=== PATIENT | female | born 1955 | race Caucasian/White ===

== ENCOUNTER 2019-05-17 12:27 | Outpatient (CLI) | payer MEDICARE, OTHER ==
--- NOTE | 2019-05-17 14:23 | ULT ---
THYROID ULTRASOUND: Date: 05/17/19 COMPARISON: None. HISTORY: Thyroid nodule. TECHNIQUE: Multiplanar Mendoza scale sonographic imaging of the thyroid gland obtained. FINDINGS: Thyroid isthmus measures 3 mm in AP dimension. Right lobe measures 1.6 x 5.2 x 1.8 cm. There is a 5.0 x 3.0 x 4.0 mm solid and cystic nodule within the inferior aspect of the right lobe. There is a solid hypoechoic nodule within the superior aspect of the right lobe measuring 5.0 x 3.0 x 4.0 mm. Right lobe measures 1.6 x 5.2 x 1.8 cm. Left lobe ekta sures 1.1 x 3.9 x 1.4 cm. No nodule noted in the thyroid isthmus or left lobe. IMPRESSION: TI-RADS Category 4 - Moderately suspicious. As the hypoechoic nodule within the right lobe is less th an 1.0 cm, no further follow-up is recommended based on TI-RADS recommendations. POS: C
== END 2019-05-17 12:28 | disposition home or self-care (01) ==
LOC: BICULT 12:27
PROVIDERS: ATTEND Internal Medicine Cardiovascular Disease
DX: E04.1 Nontoxic single thyroid nodule (principal)
CPT/HCPCS: 76536

== ENCOUNTER 2019-07-09 10:19 | Day surgery (SDC) | payer MEDICARE, OTHER ==
[2019-07-06 10:39] VITALS: BMI 35.4
[2019-07-09] MEDS ORDERED: Midazolam HCl 2 mg/2 ml Vial ONE ×2 (10:39→13:20)
[2019-07-09] MEDS ORDERED: Fentanyl 100 MCG/2 ML VIAL ONE ×2 (10:39→13:20)
[2019-07-09] MEDS ORDERED: Famotidine/PF 20 mg/2ml Vial ONE (11:20)
--- NOTE | 2019-07-09 12:22 | RAD ---
XR Hip Rt 2-3 View HISTORY: Right hip pain. No history of trauma. COMPARISON: None. FINDINGS: Some minimal osteophytic changes of the acetabulum are seen and femoral head neck junction. No joint space narrowing. No fractures. IMPRESSION: Minimal arthritic changes of the hip.
--- NOTE | 2019-07-09 12:23 | RAD ---
XR Hip Lt 2-3 View HISTORY: Left hip pain. No history of trauma. COMPARISON: None. FINDINGS: Some very mild arthritic changes of the hip are noted with some minimal spurring along the acetabulum and femoral head neck junction. Ossification is seen adjacent to the greater trochanter probably related to the gluteus minimus and medius tendons. IMPRESSION: Mild arthritic changes of the hip. No significant joint space narrowing.
--- NOTE | 2019-07-09 12:25 | RAD ---
XR Lumbar Spine 2 Or 3 View HISTORY: Back pain. COMPARISON: None. FINDINGS: The vertebral bodies are normal in height. There are degenerative osteophytes along the cou rse of the spine with mild disc narrowing at L2-3. No spondylolisthesis. No abnormal motion in flexion or extension. Moderate degenerative facet changes are seen. IMPRESSION: Arthritic changes of the spine. No abnormal motion seen on flexion or extension views.
--- NOTE | 2019-07-09 12:27 | RAD ---
XR Cervical Sp Com W/Obl Fl/Ex HISTORY: Neck pain. COMPARISON: None. FINDINGS: The vertebral bodies are normal in height degenerative osteophytic changes are seen at C4-5 without significant disc narrowing. Mild to moderate disc narrowing is seen at C5-6 and mild disc narrowing at C6-7. There are degenerative facet changes present. There is somewhat restricted motion of the lower cervical spine on the flexion view no evidence of any abnormal motion. IMPRESSION: Moderate arthritic changes of the lower cervical spine.
--- NOTE | 2019-07-09 14:00 | MRI ---
MRI BRAIN WITHOUT CONTRAST: 07/09/2019 12:00 a.m. CLINICAL HISTORY: Pain. COMPARISON: None. FINDINGS: Extra axial spaces: Normal in size and morphology for the patient's age. Acute infarction: None. Ventricular system: Normal in size and morphology for the patient's age. Basal cisterns: Normal. Cerebral parenchyma: There is a complex cystic focus of the left carpio radiata, anteriorly with surr ounding T2 hyperintensity. There is vague T2 hypoattenuation involving the anterior pole of the left temporal lobe. Multifocal signal abnormalities of the brain parenchyma are most consistent with mild chronic ischemic disease. Midline shift: None. Cerebellum: Normal. Brainstem: Mild gliosis. Paranasal sinuses:Scattered mucosal thickening. IMPRESSION: 1. Complex cystic focus of the anterior left carpio radiata with surrounding parenchymal T2 hyperinte nsity. Recommend contrast enhanced brain MRI in order to exclude an underlying cystic lesion. 2. Vague T2 hypointensity of the anterior pole left temporal lobe, nonspecific. Exclusion of enhancem ent may be evaluated on follow-up scan, as recommended above. 3. Microvascular ischemic disease of the cerebral white matter and brainstem. Transcribed Date/Time: 07/09/2019 2:29 PM
--- NOTE | 2019-07-09 14:20 | MRI ---
MRI Cervical spine without contrast: HISTORY: Neck Pain COMPARISON: None FINDINGS: The craniocervical junction is unremarkable. No significant cord signal abnormality. Paravertebral soft tissues have a normal appearance and normal signal intensity. C1-2:No significant stenosis. C2-3: There is a tiny central disc protrusion mildly effacing the ventral subarachnoid space. Neural foramina are patent. C3-4: There is a minimal disc osteophyte complex and tiny central disc protrusion. This mildly efface s the ventral subarachnoid space. Facet hypertrophic changes are present. Findings result in mild bilateral neural foraminal narrowing. C4-5: There is a broad-based disc osteophyte complex with uncinate process hypertrophy on the right. Findings narrow the ventral subarachnoid space and flatten the anterior aspect of the spinal cord. Left neural foramen is patent, but there is moderate right-sided neural foraminal narrowing. C5-6: There is loss of intervertebral disc height. There is broad-based disc osteophyte complex which results in flattening of the anterior aspect of the spinal cord and generalized narrowing of the central spinal canal. There is moderate right and moderate to severe left-sided neural foraminal narr owing. C6-7: There is a mild disc osteophyte complex. This narrows the ventral subarachnoid space with sligh t flattening of the anterior aspect of the spinal cord. Right neural foramen is patent, but there is mild to moderate left-sided neural foraminal narrowing. C7-T1: There is no disc bulge or disc herniation. The central spinal canal and neural foramina are pa tent. IMPRESSION: Degenerative changes in the cervical spine.
--- NOTE | 2019-07-09 14:37 | MRI ---
EXAM: Lumbar spine MRI without contrast. HISTORY: Low back pain COMPARISON: None FINDINGS: Multiplanar, multisequence MRI examination of the lumbar spine is performed. The conus medullaris region appears unremarkable. No evidence for significant abnormal marrow signal. Generalized disc desiccation changes and ligament and facet hypertrophic changes. T12-L1 disc level: Unremarkable. L1-L2 disc level: Unremarkable. L2-L3 disc level: Very slight thinning of the lateral recesses L3-L4 disc level: Mild central canal and [id number] bilateral recess stenosis L4-L5 disc level: Moderate lateral recess stenosis worse on the left side. L5-S1 disc level: Central and left central protrusion with mild central canal indention and left late ral recess stenosis. IMPRESSION: Multilevel variable severity canal, lateral recess, and foraminal stenosis.
[2019-07-09] MEDS ORDERED: ePHEDrine/0.9% NaCl/PF SYRINGE 50 mg/10 ml ONE (15:43)
[2019-07-09] MEDS ORDERED: Ondansetron PF 4 MG/2 ML Vial ONE (15:43)
[2019-07-09] MEDS ORDERED: Lidocaine 1% PF 5 ML VIAL ONE (15:43)
[2019-07-09] MEDS ORDERED: PROPOFOL 200 MG/20 ML VIAL ONE (15:43)
[2019-07-09] MEDS ORDERED: Glycopyrrolate 0.2 MG/ML 5 ML SYRINGE ONE (15:43)
[2019-07-09] MEDS ORDERED: PHENYLEPHRINE-NS 100 MCG/ML 10 ML SYRINGE ONE (15:43)
--- NOTE | 2019-07-09 16:30 | EKG ---
Test Reason : PREOP Blood Pressure : / mmHG Vent. Rate : 070 BPM Atrial Rate : 070 BPM P-R Int : 162 ms QRS Dur : 082 ms QT Int : 398 ms P-R-T Axes : 040 072 069 degrees QTc Int : 429 ms Normal sinus rhythm Normal ECG No previous ECGs available Confirmed by DR. Alexandru TIRADO ([id number]) on 07/09/2019 4:29:32 PM Referred By: FRANCI Confirmed By:DR. Alexandru TIRADO
== END 2019-07-09 15:45 | disposition home or self-care (01) ==
LOC: SDC/OP 10:19
PROVIDERS: ATTEND Neurological Surgery
DX: M48.061 Spinal stenosis, lumbar region without neurogenic claudication (principal); M51.27 Other intervertebral disc displacement, lumbosacral region; M48.07 Spinal stenosis, lumbosacral region; M50.21 Other cervical disc displacement, high cervical region; M25.78 Osteophyte, vertebrae; M16.12 Unilateral primary osteoarthritis, left hip; Z79.4 Long term (current) use of insulin; Z79.82 Long term (current) use of aspirin; Z79.899 Other long term (current) drug therapy; Z88.0 Allergy status to penicillin; Z88.1 Allergy status to other antibiotic agents; Z88.2 Allergy status to sulfonamides; Z88.5 Allergy status to narcotic agent; Z88.6 Allergy status to analgesic agent
CPT/HCPCS: 36416; 70551; 72052; 72100; 72141; 72148; 93005; 93010; J2001; J2250; J2405; J2704; J3010; S0028

== ENCOUNTER 2019-08-17 10:00 | Day surgery (SDC) | payer MEDICARE, OTHER ==
[2019-08-16 13:32] VITALS: BMI 34.3
[2019-08-17] MEDS ORDERED: Albuterol Sulfate HFA (OR ONLY) ONE (12:24)
[2019-08-17] MEDS ORDERED: Fentanyl 100 MCG/2 ML VIAL ONE (12:24)
[2019-08-17] MEDS ORDERED: Lidocaine 1% PF 5 ML VIAL ONE (12:49)
[2019-08-17] MEDS ORDERED: ePHEDrine/0.9% NaCl/PF SYRINGE 50 mg/10 ml ONE (12:49)
[2019-08-17] MEDS ORDERED: PROPOFOL 200 MG/20 ML VIAL ONE (12:49)
[2019-08-17] MEDS ORDERED: Ondansetron PF 4 MG/2 ML Vial ONE (12:49)
[2019-08-17 13:26] LABS: Estimated GFR-MDRD - POC Greater than 90
--- NOTE | 2019-08-17 14:06 | MRI ---
Exam: MRI thoracic spine without contrast HISTORY: Thoracic spine pain. COMPARISON: None TECHNIQUE: MRI thoracic spine is performed without contrast FINDINGS: Appropriate T1 marrow signal intensity of the thoracic vertebra. Vertebral body height is maintained. No fracture. No significant STIR hyperintensity to suggest vertebral body edema or ligamentous injury Intrinsic T1 and T2 hyperintensity involving the T11 vertebral body, compatible with a small vertebra l body hemangioma. Visualized mediastinum is unremarkable. Dependent atelectatic changes lung parenchyma Visualized solid organs are unremarkable Conus medullaris terminates beyond the T12 vertebral body. The thoracic cord has a normal size and si gnal intensity. No cord malacia. No cord expansion. Throughout the thoracic spine, no significant central canal stenosis or significant neural foraminal narrowing. IMPRESSION: No significant central canal stenosis or significant neural foraminal narrowing throughout the thorac ic spine.
--- NOTE | 2019-08-17 14:34 | MRI ---
Exam: Brain MRI with and without contrast HISTORY: Brain cyst COMPARISON: 07/09/2019 FINDINGS: Gradient echo sequence: No hemorrhage Calvarium: Appropriate T1 marrow signal intensity Midline brain parenchyma: Unremarkable Cerebrum:Redemonstration of a T2 and FLAIR hyperintense focus in the anterior left carpio radiata, me asuring 1.8 x 1.6 cm. Grossly, this lesion measured 1.7 x 1.5 cm. There are components of T2 and FLAIR hyperintensity. Additional areas of T2 hyperintensity and FLAIR hypointensity are noted. These small areas likely represent areas of cystic degeneration. No associated restricted diffusion. No evidence of hemorrhage. Postcontrast images do not demonstrate any evidence of enhancement. Ventricles: No evidence of hydrocephalus. Sinuses and mastoid air cells: Adequate aeration Diffusion: Central arterial flow is maintained. Absent restricted diffusion. Postcontrast images: No pathologic enhancement of the brain parenchyma. IMPRESSION: Redemonstration of a T2 and FLAIR hyperintensity in the left craniotomy. No associated enhancement or restricted diffusion. Focus of chronic small vessel ischemic change versus an area of gliosis is favored. There do appear to be 2 cystic components which may represent malacic change from a remote i nsult. There does not appear to be any evidence of enhancement.
== END 2019-08-17 14:40 | disposition home or self-care (01) ==
LOC: SDC/OP 10:00
PROVIDERS: ATTEND Neurological Surgery
DX: M47.812 Spondylosis without myelopathy or radiculopathy, cervical region (principal); M47.813 Spondylosis without myelopathy or radiculopathy, cervicothoracic region; M47.815 Spondylosis without myelopathy or radiculopathy, thoracolumbar region; M25.551 Pain in right hip; M25.552 Pain in left hip; Z79.4 Long term (current) use of insulin; Z79.82 Long term (current) use of aspirin; Z79.899 Other long term (current) drug therapy; Z88.0 Allergy status to penicillin; Z88.2 Allergy status to sulfonamides; Z88.5 Allergy status to narcotic agent; Z88.6 Allergy status to analgesic agent; Z98.890 Other specified postprocedural states
CPT/HCPCS: 36416; 70553; 72146; 82565; J2001; J2405; J2704; J3010

== ENCOUNTER 2019-11-09 07:38 | Outpatient (CLI) | payer MEDICARE, OTHER ==
--- NOTE | 2019-11-09 13:07 | NM ---
RADIONUCLIDE GASTRIC EMPTYING SCAN: HISTORY: Abdominal distention (gaseous) RADIOPHARMACEUTICAL: 2 mCi technetium 99m sulfur colloid administered orally in scrambled eggs. FINDINGS: Gastric emptying at different times is as follows: 1 hour: 60% 2 hours: 82% 3 hours: 86% 4 hours: 91% IMPRESSION: Normal exam
== END 2019-11-09 07:39 | disposition home or self-care (01) ==
LOC: NM 07:38
PROVIDERS: ATTEND Internal Medicine Gastroenterology
DX: R14.0 Abdominal distension (gaseous) (principal); R19.4 Change in bowel habit; E11.9 Type 2 diabetes mellitus without complications; M54.9 Dorsalgia, unspecified; G89.29 Other chronic pain; Z86.010 Personal history of colon polyps
CPT/HCPCS: 78264; A9541

== ENCOUNTER 2020-08-18 10:30 | Outpatient (CLI) | payer MEDICARE, OTHER ==
--- NOTE | 2020-08-18 11:13 | ULT ---
Thyroid sonogram HISTORY: Thyroid nodule. COMPARISON: 05/17/2019. FINDINGS: Right thyroid lobe measures up to 5.1 cm length on today's exam. The oval isoechoic nodule within the superficial aspect of the superior pole is 0.6 cm x 0.6 cm x 0.3 cm on today's exam. More inferiorly, the well-circumscribed oval heterogeneous partially cystic nodule with internal sept ations is 0.6 cm x 0.5 cm x 0.4 cm greatest diameters. The isthmus is 0.3 cm. Left lobe 4.3 cm without abnormality. Nonenlarged, reactive appearing lymph nodes are noted along each side of the neck. IMPRESSION : Very little change of the right thyroid lobe nodules. TI RADS 3 and TI RADS 4. Based on the size, continued surveillance is not required.
== END 2020-08-18 10:31 | disposition home or self-care (01) ==
LOC: BICULT 10:30
PROVIDERS: ATTEND Otolaryngology Plastic Surgery within the Head & Neck
DX: E04.2 Nontoxic multinodular goiter (principal)
CPT/HCPCS: 76536

== ENCOUNTER 2021-02-27 12:43 | Outpatient (CLI) | payer MEDICARE, OTHER | END 2021-02-27 12:44 | disposition home or self-care (01) | LOC: BICMAMMO 12:43 | PROVIDERS: ATTEND Internal Medicine | DX: Z12.31 Encounter for screening mammogram for malignant neoplasm of breast (principal); Z80.3 Family history of malignant neoplasm of breast | CPT/HCPCS: 77063; 77067 ==

== ENCOUNTER 2021-09-03 12:22 | Outpatient (CLI) | payer MEDICARE, OTHER | END 2021-09-03 12:23 | disposition home or self-care (01) | LOC: BICULT 12:22 | PROVIDERS: ATTEND Otolaryngology Plastic Surgery within the Head & Neck | DX: E04.9 Nontoxic goiter, unspecified (principal) | CPT/HCPCS: 76536 ==